=== PATIENT | male | born 1990 | race Caucasian/White ===

== ENCOUNTER → 2023-05-15 | Outpatient (CLI) | payer OTHER ==
--- NOTE | 2023-05-15 17:27 | US ---
EXAMINATION TYPE: US groin RT DATE OF EXAM: 05/15/2023 COMPARISON: 04/06/2014. CLINICAL INDICATION: Male, 32 years old with history of K40.90 UNIL INGUINAL HERNIA, W/O OBST OR GANG R, NO; per pt. known right inguinal hernia x 2 years, no prior imaging TECHNIQUE: several images taken at patients palpable area FINDINGS: there appears to be a possible herniation during live scanning, however this are may corre spond to a mobile spermatic cord after further assessment. IMPRESSION: Possible right inguinal hernia further evaluation with cross-sectional imaging recommende d. There is fatty changes right inguinal canal seen on prior in 2014.
== END | disposition home or self-care (01) ==
LOC: RADUSWWP 14:44
PROVIDERS: ATTEND Surgery Plastic and Reconstructive Surgery
DX: K40.90 Unilateral inguinal hernia, without obstruction or gangrene, not specified as recurrent (principal)

== ENCOUNTER 2023-07-11 07:46 | Day surgery (SDC) | payer OTHER ==
[2023-07-09 16:39] VITALS: BMI 29.5
--- NOTE | 2023-07-11 06:23 | P.GSHP ---
History of Present Illness H&P Date: 07/11/23 CHIEF COMPLAINT: Inguinal hernia, right. HISTORY OF PRESENT ILLNESS: The patient is a 32-year-old male who presents with a history of swelling and pain along the right groin. He has had previous repair. He's noted increased swelling including pain of the area. Now he presents for repair of his inguinal hernia. PAST MEDICAL HISTORY: Please see list. PAST SURGICAL HISTORY: Please see list. MEDICATIONS: Please see list. ALLERGIES: Please see list. SOCIAL HISTORY: No illicit drug use FAMILY HISTORY: No reports of Crohn disease or ulcerative colitis. REVIEW OF ORGAN SYSTEMS: CONSTITUTIONAL: No reports of fevers or chills. No reports of weight loss despite prior attempts. GI: Denies any blood in stools or constipation. PHYSICAL EXAM: VITAL SIGNS: Stable GENERAL: Well-developed pleasant male in no acute distress. HEENT: No scleral icterus. Extraocular movements grossly intact. Moist buccal mucosa. NECK: Supple without lymphadenopathy. CHEST: Unlabored respirations. Equal bilateral excursions. CARDIOVASCULAR: Regular rate and rhythm. Distal 2+ pulses. ABDOMEN: Soft, nondistended. No peritoneal signs. Palpable defect of the right groin. MUSCULOSKELETAL: No clubbing, cyanosis, or edema. ASSESSMENT: 1. Inguinal hernia, right PLAN: 1. Recommend proceeding with a robotic inguinal repair with mesh with possible bilateral approach. 2. Benefits and risks of surgical intervention was discussed including possibility of open technique. 3. DVT prophylaxis. 4. Antibiotic prophylaxis. 5. Non narcotic pain management including abdominal wall block described 6. Blood sugar glucose described. 7. Weight loss management described. Past Medical History Past Medical History: Diabetes Mellitus, Hyperlipidemia, Hypertension, Musculoskeletal Disorder Additional Past Medical History / Comment(s): Scolosis. "Pre-diabetic, had Diabetes but resolved with weight loss". History of Any Multi-Drug Resistant Organisms: None Reported Past Surgical History: Tonsillectomy Additional Past Surgical History / Comment(s): Scolosis surgery, wisdom teeth extracted. Past Anesthesia/Blood Transfusion Reactions: No Reported Reaction Smoking Status: Never smoker - Past Family History Father Family Medical History: Cancer Medications and Allergies Home Medications Medication Instructions Recorded Confirmed Type Multivitamins, Thera [Multivitamin 1 tab PO DAILY 07/10/23 07/10/23 History (formulary)] lisinopriL [Zestril] 10 mg PO QAM 07/10/23 07/10/23 History Allergies Allergy/AdvReac Type Severity Reaction Status Date / Time amoxicillin trihydrate Allergy Rash/Hives Verified 07/09/23 15:41 [From Augmentin] cefpodoxime proxetil Allergy Rash/Hives Verified 07/09/23 15:41 [From Vantin] Penicillins Allergy Rash/Hives Verified 07/09/23 15:41 potassium clavulanate Allergy Rash/Hives Verified 07/09/23 15:41 [From Augmentin] sulfamethoxazole Allergy Rash/Hives Verified 07/09/23 15:41 [From Bactrim] trimethoprim [From Bactrim] Allergy Rash/Hives Verified 07/09/23 15:41
[~2023-07-11 07:46] MED LIST: HEPARIN SODIUM,PORCINE 5,000 UNIT/ML 1 ML VIAL SQ PRN; LACTATED RINGERS 1,000 ML IV SCH; MIDAZOLAM 2 MG/2 ML VIAL IV PRN; ONDANSETRON 4 MG/2 ML VIAL IVP PRN
[2023-07-11] MEDS: LACTATED RINGERS 1,000 ML IV ONE ×3 (08:06→13:42)
[2023-07-11] MEDS: MELOXICAM 7.5 MG TAB PO PRN (08:23)
[2023-07-11] MEDS: ACETAMINOPHEN TAB 500 MG TAB PO PRN (08:23)
[2023-07-11] MEDS: TAMSULOSIN 0.4 MG CAP.ER.24H PO STA (08:23)
[2023-07-11] MEDS: LIDOCAINE 1% (10MG/ML) FOR IV START INTRADERMA PRN (08:23)
[2023-07-11] MEDS: ONDANSETRON 4 MG/2 ML VIAL IVP ONE ×2 (08:31→13:37)
[2023-07-11] MEDS: DEXAMETHASONE SOD PHOSPHATE 4 MG/ML 1 ML VIAL IV ONE (08:31)
[2023-07-11 08:38] LABS: Glucose,Whole Blood 96 mg/dL (70-110)
[2023-07-11 09:07] LABS: Basophils % (A) 1 %; Eosinophils # (A) 0.1 k/uL (0-0.7); Eosinophils % (A) 1 %; HCT 48.4 % (39.0-53.0); HGB 16.7 gm/dL (13.0-17.5); Lymphocytes % (A) 26 %; MCH 30.7 pg (25.0-35.0); MCHC 34.5 g/dL (31.0-37.0); MCV 89.1 fL (80.0-100.0); Mean Platelet Volume 7.3; Monocytes # (A) 0.5 k/uL (0-1.0); Monocytes % (A) 7 %; Neutrophils # (A) 4.7 k/uL (1.3-7.7); Neutrophils % (A) 62 %; Platelet Count 254 k/uL (150-450); RBC 5.43 m/uL (4.30-5.90); RDW 12.6 % (11.5-15.5); WBC 7.5 k/uL (3.8-10.6)
[2023-07-11 09:13] LABS: ALT 30 U/L (4-49); AST 27 U/L (17-59); African American GFR (CKD) >90 (>60 ml/min/1.73 sqM); Albumin 4.4 g/dL (3.5-5.0); Alkaline Phosphatase 64 U/L (38-126); Anion Gap 7 mmol/L; Blood Urea Nitrogen 24 mg/dL (9-20); Calcium 9.7 mg/dL (8.4-10.2); Carbon Dioxide 30 mmol/L (22-30); Chloride 103 mmol/L (98-107); Glucose 113 mg/dL (74-99); Non-African American GFR(CKD) >90 (>60 ml/min/1.73 sqM); Potassium 4.8 mmol/L (3.5-5.1); Sodium 140 mmol/L (137-145); Total Bilirubin 0.7 mg/dL (0.2-1.3)
[2023-07-11] MEDS ORDERED: NEOSTIGMINE 1 MG/ML 10 ML VIAL ONE (10:11)
[2023-07-11] MEDS ORDERED: PROPOFOL 10 MG/ML 20 ML VIAL IV ONE (10:11)
[2023-07-11] MEDS ORDERED: fentaNYL (PF) 50 MCG/ML 2 ML AMP ONE (10:11)
[2023-07-11] MEDS ORDERED: PHENYLEPHRINE 10 MG/ML VIAL ONE (10:11)
[2023-07-11] MEDS ORDERED: MIDAZOLAM 2 MG/2 ML VIAL ONE (10:11)
[2023-07-11] MEDS ORDERED: ePHEDrine 50 MG/ML 1 ML VIAL ONE (10:11)
[2023-07-11] MEDS ORDERED: SUGAMMADEX SODIUM 200 MG/2 ML SDV IV ONE (10:11)
[2023-07-11] MEDS ORDERED: SUCCINYLCHOLINE CHLORIDE 200 MG/10 ML VIAL IV ONE (10:11)
[2023-07-11] MEDS ORDERED: ROCURONIUM 10 MG/ML (5 ML VIAL) IV ONE (10:11)
[2023-07-11] MEDS ORDERED: GLYCOPYRROLATE 0.2 MG/ML 2 ML VIAL ONE (10:11)
[2023-07-11] MEDS ORDERED: LIDOCAINE 1% INJ 10MG/ML (20 ML MDV) ONE (10:11)
[2023-07-11] MEDS: LIDOCAINE 1%-EPI 1:100,000 20 ML VIAL SQ ONE ×2 (10:39→10:47)
[2023-07-11 13:08] VITALS: TEMP 97.3
[2023-07-11] MEDS: HYDROmorphone 0.5 MG/0.5 ML SYRINGE IVP PRN (13:22)
[2023-07-11 14:09] VITALS: PULSE 95
[2023-07-11 16:02] VITALS: BP 121/72
[2023-07-11 16:03] VITALS: RESP 18
--- NOTE | 2023-07-15 13:16 | P.OP ---
Date of Procedure: 07/11/23 Description of Procedure: SURGEON: GEORGIANA GRANT MD PREOPERATIVE DIAGNOSES: 1. Initial right inguinal hernia 2. Hypertensive heart disease 3. Hyperlipidemia 4. Diabetes type 2, not insulin-dependent 5. Scoliosis POSTOPERATIVE DIAGNOSES: 1. Initial right inguinal hernia, indirect with incarcerated small bowel, partial obstruction 2. Hypertensive heart disease 3. Hyperlipidemia 4. Diabetes type 2, not insulin-dependent 5. Scoliosis OPERATION: 1. Robotic-assisted da Enedelia Xi laparoscopic reduction and repair of initial incarcerated right undirect inguinal hernia with mesh, 10 x [address] ANESTHESIA: General, regional with local anesthetic ESTIMATED BLOOD LOSS: 5 mL. SPECIMENS: 1. Right inguinal hernia sac. COMPLICATIONS: None. FINDINGS: 1. Incarcerated right inguinal hernia with omentum and bowel obstruction. 2. Defect size 5 x 4 cm, right indirect inguinal hernia with extension to scrotum 3. Closure of fascial defect of the right groin performed INDICATIONS: The patient is a 32-year-old gentleman who presents with initial right inguinal hernia for over 5 years. Now presents for definitive surgical intervention. Laparoscopic versus open and robotic approaches were discussed. Benefits and risks including bleeding, infection, injury to the vas deferens as well as sterility and chronic groin pain were reviewed. Placement of mesh was also described. Informed consent was obtained. DESCRIPTION: In the preoperative area, the patient was marked with indelible marker along the inguinal hernia. The patient was brought to the operating room and initially laid in supine position. The abdomen had been prepped and draped in standard sterile fashion. Ioban draping was also placed. Prior to incision, a timeout protocol was confirmed with surgical team regarding patient's name including procedures to be performed and location along the right groin. Initial positioning for the robotic assisted ports were selected whereby 15 cm superior to the target anatomy, 0 degree 5 mm laparoscopic trocar entry was performed at the left upper quadrant. The abdomen was insufflated to 15 mmHg which he had tolerated well. Diagnostic laparoscopy demonstrated no injury to bowel, viscera or mesentery. A large defect along the right groin was found with incarcerated small intestine and omentum. Next, along the epigastrium, 8 mm robot trocar was placed. An 8-mm robotic trocar was placed under direct visualization at the right upper quadrant. An 8 mm port was placed at the left upper quadrant. All trocars were positioned between 10-cm apart from each other. An accessory trocar 12 mm placed along the right upper abdominal wall, lateral. The Chango XI robot was primed, draped, prepared for docking along upper abdomen of the patient. The patient was positioned 14 steep Trendelenburg position. In steep Trendelenburg, the incarcerated contents along the right scrotum were reduced into the abdomen from his incarcerated right inguinal hernia. I then went to the Chango Xi console. The assistant grocery store manager was at bedside for exchange of the robot arms and equipment. The right inguinal hernia sac was evaginated whereby the peritoneum was scored using Endo scissors with cautery. The hernia sac extended all the way to the scrotum with another area of incarceration found and lysed using vessel sealer. Careful dissection was performed to deliver the hernia sac from the scrotum into the abdomen without injury to the spermatic cord structures. Once completely reduced into the abdominal cavity, the peritoneal sac of the hernia was resected. The sac was resected and then passed off for further pathological analysis. The size of the hernia defect was 5 by cm with intraoperative films obtained. Using a nonabsorbable 2-0 VLOC, the shelving portion of the inguinal ligament was used to reapproximate with the conjoined tendon from lateral to medial with closure of the defect. The peritoneal defect of the right inguinal hernia site was closed using a running suture. The defect was found to be completely closed with complete reduction of the right indirect inguinal hernia was confirmed. As an onlay, an 10 x [address] mesh by [employer] was initially cut in half and entered into the abdominal cavity via the 12 mm trocar. The mesh was tacked to the pelvis using nonabsorbable 2-0 VLOC 9-inch length sutures. The robot was undocked from the patient's bedside. I then rescrubbed into the case. Insufflation was released from the abdominal cavity and all instruments were removed from the abdominal cavity. The rest of incisions were reapproximated using 4-0 Monocryl in a running subcuticular fashion. Incisions were cleansed using dilute hydrogen peroxide. Liquid glue was applied to the skin. At the end of the procedure, the needle, sponge and instrument counts had been verified correct by the forest technician. The patient had tolerated the procedure well and was taken to the postanesthesia care unit in stable condition. Plan - Discharge Summary Discharge Rx Participant: Yes New Discharge Prescriptions: New Ibuprofen [Motrin] 600 mg PO Q8HR PRN #30 tab PRN Reason: Pain Simethicone [Gas-X] 125 mg PO AC-TID PRN #20 capsule PRN Reason: Pain Acetaminophen Tab [Tylenol Tab] 1,000 mg PO Q6HR PRN #30 tablet PRN Reason: Pain Continue lisinopriL [Zestril] 20 mg PO QAM Multivitamins, Thera [Multivitamin (formulary)] 1 tab PO DAILY Discharge Medication List Multivitamins, Thera [Multivitamin (formulary)] 1 tab PO DAILY 07/10/23 [History] lisinopriL [Zestril] 20 mg PO QAM 07/10/23 [History] Acetaminophen Tab [Tylenol Tab] 1,000 mg PO Q6HR PRN #30 tablet 07/11/23 [Rx] Ibuprofen [Motrin] 600 mg PO Q8HR PRN #30 tab 07/11/23 [Rx] Simethicone [Gas-X] 125 mg PO AC-TID PRN #20 capsule 07/11/23 [Rx] Follow up Appointment(s)/Referral(s): Georgiana Grant MD [STAFF PHYSICIAN] - 07/16/23 6:30 pm (TELEHEALTH - DR WILL CALL YOU BETWEEN 9 am to 8 pm ) Patient Instructions/Handouts: *Surgery [facility] - (Anesthesia) Discharge Instructions Outpatient Surgery Activity/Diet/Wound Care/Special Instructions: TELEHEALTH - WILL CALL YOU BETWEEN 9 am to 8 pm No lifting for 4 pounds in 4 weeks, August 10 Using antibacterial soap. May shower. No bathtub soaks for 2 weeks, July 24 Use ice along incisions for today to prevent swelling. Use Tylenol, simethicone scheduled for the next 24-48 hours for best pain relief. Discharge Disposition: HOME SELF-CARE
== END 2023-07-11 16:09 | disposition home or self-care (01) ==
LOC: OR 07:46
PROVIDERS: ATTEND Surgery Plastic and Reconstructive Surgery
DX: K40.90 Unilateral inguinal hernia, without obstruction or gangrene, not specified as recurrent (principal); I10 Essential (primary) hypertension; E78.5 Hyperlipidemia, unspecified; E11.9 Type 2 diabetes mellitus without complications; Z90.89 Acquired absence of other organs; Z98.890 Other specified postprocedural states; Z88.0 Allergy status to penicillin; Z88.1 Allergy status to other antibiotic agents; Z88.2 Allergy status to sulfonamides
CPT/HCPCS: 49650; S2900; 80053; 85025; 88302

== ENCOUNTER → 2023-07-30 | Outpatient (CLI) | payer OTHER ==
[2023-07-30 14:54] VITALS: BP 137/90; PULSE 108; RESP 18; TEMP 98.4
--- NOTE | 2023-07-30 15:49 | P.SLEEP ---
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 He has occasional snoring. No witnessed apneas. No excessive hypersomnia or sleepiness. No insomnia. No sleep fragmentation. No nocturia. No nighttime chest pain or shortness of breath. No grinding. No sleepwalking. No sleep talking. No issues with concentration and memory during the day. The patient commutes approximately 40 minutes between [place] and [place] and the patient does not fall asleep while driving. No history of weight gain. No history of any sleep paralysis hallucinations or cataplexy. Personal or family history of sleep apnea. No r estlessness in lower extremities. The patient is single. He lives alone. As such, no clear understanding of any nighttime unusual behavior such as sleepwalking or sleep talking. No reported witnessed apneas. The patient goes to bed at around 2 AM and he wakes up 10 AM in the morning. He has to be at work at 11:30 AM. He is able to average around 8 hours of sleep without any major difficulties. No anxiety. No depression. No issues with memory or concentration during the day. No issues with claustrophobia. No depression. No sexual dysfunction. Sleep Review of Systems Constitutional: Reports as per HPI Eyes: denies as per HPI, denies blurred vision, denies bulging eye, denies decreased vision, denies diplopia, denies discharge, denies dry eye, denies irritation, denies itching, denies pain, denies photophobia, denies loss of peripheral vision, denies loss of vision, denies tunnel vision/blind spots Ears: deny: decreased hearing, ear discharge, earache, tinnitus Ears, nose, mouth and throat: Reports as per HPI Breasts: absent: as per HPI, gynecomastia Cardiovascular: Reports as per HPI Respiratory: Reports snoring Gastrointestinal: Reports as per HPI Genitourinary: Reports as per HPI Musculoskeletal: Reports as per HPI Musculoskeletal: absent: ankle pain, ankle stiffness, ankle swelling, as per HPI, elbow pain, elbow stiffness, elbow swelling, foot pain, foot stiffness, foot swelling, hand pain, hand stiffness, hand swelling, hip pain, hip stiffness, hip swelling, knee pain, knee stiffness, knee swelling, shoulder pain, shoulder stiffness, shoulder swelling, wrist pain, wrist stiffness, wrist swelling Integumentary: Reports as per HPI Neurological: Reports as per HPI Psychiatric: Reports as per HPI Endocrine: Reports as per HPI Hematologic/Lymphatic: Reports as per HPI Allergic/Immunologic: Reports as per HPI Past Medical History Past Medical History: Hyperlipidemia, Hypertension, Musculoskeletal Disorder Additional Past Medical History / Comment(s): Scolosis. "Pre-diabetic, had Diabetes but resolved with weight loss". History of Any Multi-Drug Resistant Organisms: None Reported Past Surgical History: Tonsillectomy Additional Past Surgical History / Comment(s): Scolosis surgery, wisdom teeth extracted. Past Anesthesia/Blood Transfusion Reactions: No Reported Reaction Past Psychological History: No Psychological Hx Reported Smoking Status: Never smoker Past Alcohol Use History: Occasional Past Drug Use History: None Reported - Past Family History Father Family Medical History: Cancer Additional Family Medical History / Comment(s): restless legs Mother Family Medical History: Hyperlipidemia, Hypertension Additional Family Medical History / Comment(s): snoring Medications and Allergies Home Medications Medication Instructions Recorded Confirmed Type Multivitamins, Thera [Multivitamin 1 tab PO DAILY 07/10/23 07/10/23 History (formulary)] lisinopriL [Zestril] 20 mg PO QAM 07/10/23 07/30/23 History Acetaminophen Tab [Tylenol Tab] 1,000 mg PO Q6HR PRN #30 tablet 07/11/23 Rx Ibuprofen [Motrin] 600 mg PO Q8HR PRN #30 tab 07/11/23 Rx Simethicone [Gas-X] 125 mg PO AC-TID PRN #20 capsule 07/11/23 Rx Allergies Allergy/AdvReac Type Severity Reaction Status Date / Time amoxicillin trihydrate Allergy Rash/Hives Verified 07/09/23 15:41 [From Augmentin] cefpodoxime proxetil Allergy Rash/Hives Verified 07/09/23 15:41 [From Vantin] Penicillins Allergy Rash/Hives Verified 07/09/23 15:41 potassium clavulanate Allergy Rash/Hives Verified 07/09/23 15:41 [From Augmentin] sulfamethoxazole Allergy Rash/Hives Verified 07/09/23 15:41 [From Bactrim] trimethoprim [From Bactrim] Allergy Rash/Hives Verified 07/09/23 15:41 Physical Exam Vitals: Vital Signs Temp Pulse Resp BP Pulse Ox 07/30/23 14:52 98.4 F 108 H 18 137/90 96 Intake and Output 07/30/23 07/30/23 07/30/23 06:59 14:59 22:59 Other: Weight 107.048 kg The patient appeared well nourished and normally developed. Vital signs as documented. Head exam is unremarkable. No scleral icterus or corneal arcus noted. Neck is without jugular venous distension, thyromegaly, or carotid bruits. Carotid upstrokes are brisk bilaterally. Lungs are clear to auscultation and percussion. Cardiac exam reveals the PMI to be normally sized and situated. Rhythm is regular. First and second heart sounds normal. No murmurs, rubs or gallops. Abdominal exam reveals normal bowel sounds, no masses, no organomegaly and no aortic enlargement. Extremities are nonedematous and both femoral and pedal pulses are normal. Examination of the skin revealed no evidence of significant rashes, suspicious appearing nevi or other concerning lesions. Neurologically, the patient is awake and alert and the patient does not have any focal neurological deficit. Cranial nerves are essentially intact. Assessment and Plan Plan: Chronic loud snoring, without any major hypersomnia or sleepiness. The patient is a poor scores of 0. The patient has a Mallampati class II. Body mass index is 30. Functionality is adequately preserved. Hypertension Hyperlipidemia Plan Low clinical suspicion for obstructive sleep apnea. Will order home sleep study and will discuss treatment plan accordingly. Sleep hygiene measures are good. Maintain regular sleep schedule. Treat comorbidities. Will continue to follow. Sleep Note - Sleep Data ESS Total: 0 - Sleep Note Sleep Note: Temperature: 98.4 F Pulse Rate: 108 Respiratory Rate: 18 Blood Pressure: 137/90 SpO2: 96 Height: 6 ft 2.2 in Weight: 107.048 kg BMI: Neck Circumference: 17.5
== END ==
LOC: 3 N SLEEP 14:35
PROVIDERS: ATTEND Internal Medicine Critical Care Medicine
DX: R06.83 Snoring (principal); G47.10 Hypersomnia, unspecified; I10 Essential (primary) hypertension; E78.5 Hyperlipidemia, unspecified; Z88.0 Allergy status to penicillin; Z88.8 Allergy status to other drugs, medicaments and biological substances; Z88.2 Allergy status to sulfonamides; Z88.1 Allergy status to other antibiotic agents; Z79.899 Other long term (current) drug therapy
CPT/HCPCS: 99211

== ENCOUNTER → 2023-07-31 | Outpatient (CLI) | payer OTHER | LOC: 3 N SLEEP 16:41 | PROVIDERS: ATTEND Internal Medicine Critical Care Medicine | DX: G47.33 Obstructive sleep apnea (adult) (pediatric) (principal); I10 Essential (primary) hypertension; E78.5 Hyperlipidemia, unspecified; Z88.0 Allergy status to penicillin; Z88.8 Allergy status to other drugs, medicaments and biological substances; Z88.2 Allergy status to sulfonamides; Z88.1 Allergy status to other antibiotic agents; Z79.899 Other long term (current) drug therapy ==